=== PATIENT | female | born 1975 | race Caucasian/White ===

== ENCOUNTER 2019-06-23 10:42 | Emergency (ER) | payer BC ==
[~2019-06-23] VITALS: Ht 177.8 cm; Wt 95.3 kg
--- NOTE | 2019-06-23 11:01 | NUR ---
PATIENT [id number] FRM HOME, ANXIOUS, L HAND NUMBNESS, PAIN. INCREASED STRESS ENDORSED. PATIENT A/O X 3, VERBALLY RESPONSIVE. IV ON LEFT WRIST g18 [employer]IG[employer] PACK[employer] AND PICKER. PATIENT CONNECTED TO MONITOR
[2019-06-23 11:24] VITALS: BP 143/107
--- NOTE | 2019-06-23 11:24 | NUR ---
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
[2019-06-23 11:27] LABS: BASOPHILS # (AUTO) 0.1 /CMM (0.0-0.2); BASOPHILS % (AUTO) 0.8 % (0.0-2.0); EOSINOPHILS % (AUTO) 1.8 % (0.0-6.0); HEMATOCRIT 39 % (33-45); HEMOGLOBIN 12.9 g/dL (11.5-14.8); LYMPHOCYTES # (AUTO) 1.5 /CMM (0.8-4.8); LYMPHOCYTES % (AUTO) 19.5 % (20.0-44.0); MEAN CORPUSCULAR HGB CONC 33 g/dl (31.0-36.0); MEAN CORPUSCULAR VOLUME 77 fL (82-100); MONOCYTES # (AUTO) 0.6 /CMM (0.1-1.30); MONOCYTES % (AUTO) 7.4 % (2.0-12.0); NEUTROPHILS # (AUTO) 5.4 /CMM (1.8-8.9); NEUTROPHILS % (AUTO) 70.5 % (43.0-81.0); PLATELET COUNT (AUTO) 389 /CMM (150-450); WHITE BLOOD COUNT (AUTO) 7.7 K/uL (4.3-11.0)
[2019-06-23 11:35] LABS: CALCIUM, SERUM 9.6 mg/dL (8.5-10.1); CARBON DIOXIDE 26 mmol/L (21-32); CHLORIDE 104 mmol/L (98-107); CREATININE 0.9 mg/dL (0.6-1.3); GLUCOSE 100 mg/dL (74-106); POTASSIUM 4.5 mmol/L (3.5-5.1); SODIUM SERUM 138 mmol/L (136-145); UREA NITROGEN, BLOOD 14 mg/dL (7-18)
[2019-06-23 11:45] LABS: ALANINE AMINOTRANSFERASE 15 U/L (12-78); ALBUMIN 3.3 g/dL (3.4-5.0); ALKALINE PHOSPHATASE 104 U/L (46-116); ASPARTATE AMINOTRANSFERASE 12 U/L (15-37); BILIRUBIN,DIRECT 0.1 mg/dL (0.0-0.2); BILIRUBIN,TOTAL 0.2 mg/dL (0.2-1.0); TOTAL PROTEIN, SERUM 7.7 g/dL (6.4-8.2)
[2019-06-23] MEDS ORDERED: ALPR0.25 PO (12:50)
[2019-06-23] MEDS ORDERED: LEVO100T PO (12:50)
[2019-06-23] MEDS ORDERED: LIOT25TA7 PO (12:50)
[2019-06-23] MEDS ORDERED: ASPIRIN 325 MG TABLET ONE (12:52)
[2019-06-23] MEDS ORDERED: ASPIRIN 325 MG TABLET PO ONE (13:00)
--- NOTE | 2019-06-23 13:50 | NUR ---
PATIENT WISHES TO LEAVE HOSPITAL AGAINST MEDICAL ADVICE. DR DAVALOS AWARE. RISKS AND BENEFITS EXPLAINED TO PATIENT AND VERBALIZED UNDERSTANDING. AMA FORM SIGNED BY PATIENT IV REMOVED, TIP INTACT, PRESSURE DRESSING PLACED ON SITE. PATIENT LEFT UNIT AMBULATORY ACCOMPANIED BY . DR DAVALOS AWARE
== END 2019-06-23 14:05 | disposition left against medical advice (07) ==
LOC: ER 10:47
DX: G45.9 Transient cerebral ischemic attack, unspecified (principal); R41.82 Altered mental status, unspecified
CPT/HCPCS: 36415; 70450-TC; 71045-TC; 80048-TC; 80076-TC; 84484-TC; 84703-TC; 85025-TC; 87081-TC